=== PATIENT | female | born 1940 | race Caucasian/White ===

== ENCOUNTER 2024-08-20 14:26 | Emergency (ER) | payer MEDICARE, OTHER, SELFPAY ==
[2024-08-20 14:33] VITALS: BP 121/79
[2024-08-20 14:53] LABS: % Basophils 0.6 % (0-2); % Immature Granulocytes 0.4 % (0-0.5); % Lymphocytes 13.6 % (20.5-51.1); % Monocytes 8.8 % (1.7-9.3); % Neutrophils 75.6 % (42.2-75.2); Absolute Eosinophils 0.1 10^3/uL (0-0.7); Absolute Monocytes 0.6 10^3/uL (0.1-0.6); Absolute Neutrophils 5.3 10^3/uL (1.4-6.5); Hemoglobin 12.2 g/dL (12.0-16.0); Mean Corpuscular Volume 88.1 fL (81.0-99.0); Nucleated Red Blood Cells % 0 %; Platelet Count 251 10^3/uL (130-400); Red Cell Dist. Width 11.9 % (11.5-14.5)
[2024-08-20 15:35] LABS: ALT (SGPT) 14 U/L (0-35); AST (SGOT) 19 U/L (14-36); Albumin 3.8 g/dl (3.5-5.0); Alkaline Phosphatase 112 U/L (38-126); Blood Urea Nitrogen 12 mg/dl (7-17); Calcium 9.2 mg/dl (8.4-10.2); Carbon Dioxide 28 mmol/L (22-30); Chloride 99 mmol/L (98-107); Glucose 104 mg/dl (70-99); Lipase 82 U/L (23-300); Potassium 3.5 mmol/L (3.5-5.1); Sodium 135 mmol/L (135-145); Total Bilirubin 0.8 mg/dl (0.2-1.3); Total Protein 6.2 g/dl (6.3-8.2); eGFR > 60.00
--- NOTE | 2024-08-20 16:34 | ED.GENMED ---
History of Present Illness
General
Chief Complaint: Abdominal Pain
Source: patient
Exam Limitations: none
Time Seen by Provider: 08/20/24 16:23
Nursing documentation reviewed up to this point in time: agreed with
History of Present Illness
History of Present Illness:
Patient is an 83-year-old female presenting to the emergency department w/ 4 days of left lower abdominal pain. She reports intermittent twinges of pain in the left lower abdomen which have been gradually worsening. Patient had 1 episode of
vomiting this morning and has been having mild nausea. She also endorses 1 episode of diarrhea the other day. No blood in her stools. Patient denies any urinary symptoms, chest pain, shortness of breath or fever. Patient is concerned that she
has a bowel obstruction.
Patient denies any history of similar symptoms.
Patient is not on any blood thinners.
Review of Systems
Review of Systems
Allergies reviewed?: Yes
All Other Systems: ROS reviewed and negative except as documented in HPI and ROS
Phy Exam
Physical Exam
Physical Exam:
Vitals: Patient's vital signs are stable. Afebrile
General: Patient is well appearing, no acute distress
Skin: Warm and dry, no rashes or lesions
Head: Normocephalic, atraumatic
Eyes: Sclera nonicteric. EOMs intact. No nystagmus.
Throat: Protecting airway
Neck: Normal ROM, no cervical spine tenderness, no meningismus
Cardiac: Regular rate and rhythm. Systolic murmur
Pulm: Normal respiratory effort, no wheezes, rales, rhonchi heard on exam.
Abdomen: Abdomen soft. Mild tenderness in left lower quadrant without rebound tenderness or guarding. No CVA tenderness
Extremities: No evidence of cyanosis or edema. Palpable DP pulses bilaterally
Neuro: AAOx3. Grossly intact.
Psychiatric: Normal affect.
Course
Orders/Labs/Results
Orders:
Orders
08/20/24 14:44
Complete Blood Count/With Diff Urgent
Comprehensive Metabolic Panel Urgent
Lipase Urgent
08/20/24 16:58
CT Abd/pelvis W Iv Cont Urgent
Comment:
Reason For Exam: LLQ abdominal pain, +diarrhea
0.9% Sodium Chloride 500 ml [Nss] 500 ml IV BOLUS
08/20/24 18:26
Urinalysis Reflex To Culture Urgent
Date Specimen was Collected: 08/20/24
Time Specimen was Collected: 18:23
Urine Microscopic Reflex Cult Urgent
08/20/24 18:49
Electrocardiogram (*1) Urgent
Reason for Study: Abdominal Pain
EKG- Treatment ONCE
08/20/24 19:23
Amoxicillin/Clavulanate Potass [Augmentin 200 mg/5 ml] 875 mg PO NOW STA
Abnormal Lab Results
08/20/24 08/20/24
14:44 18:26
Absolute Lymphs (auto) 1.0 L 10^3/uL
(1.2-3.4)
Neutrophils % 75.6 H %
(42.2-75.2)
Lymphocytes % 13.6 L %
(20.5-51.1)
Glucose 104 H mg/dl
(70-99)
Total Protein 6.2 L g/dl
(6.3-8.2)
Urine Ketones 2+ A
(Negative)
Ur Occult Blood Reflex 1+ A
(Negative)
Urine Albumin (Reflex) 1+ A
(Neg - Trace)
08/20/24 14:44
08/20/24 14:44
Vital Signs
Initial and Last Documented VS:
Initial Vital Signs
Temp Pulse Resp BP Pulse Ox
98.9 F 89 18 121/79 96
08/20/24 14:33 08/20/24 14:33 08/20/24 14:33 08/20/24 14:33 08/20/24 14:33
Last Documented Vital Signs
Temp Pulse Resp BP Pulse Ox
98.9 F 78 18 145/90 93
08/20/24 14:33 08/20/24 20:39 08/20/24 20:39 08/20/24 20:39 08/20/24 20:39
MDM/Problems Addressed
Differential Diagnosis Includes:
Not limited to: Diverticulitis, colitis, epiploic appendagitis pyelonephritis, nephrolithiasis, etc.
MDM/Problems Addressed:
83-year-old female with 4 days of lower abdominal pain associated with nausea and 1 episode of vomiting. No fevers, chest pain, shortness of breath, urinary symptoms. Vitals and exam as above. Basic labs were initiated in triage without
clinically significant abnormalities. Plan for CT imaging of abdomen/pelvis and IV fluids. Patient declines analgesia at this time. Will obtain urinalysis, as well. Will closely monitor and reassess.
Update: CT report shows mild diverticulitis of the sigmoid colon without complication. Incidental findings of coronary artery calcifications and aortic valve calcifications, as well. No chest pain or shortness of breath to suggest ACS although did
obtain screening EKG without any acute ischemic changes. These findings were discussed with patient and patient was provided copy of CT report. Advise close follow-up with machine sander and return precautions. Regarding diverticulitis�feel patient
stable for treatment at home with oral antibiotics as she is afebrile with no leukocytosis and tolerating p.o. intake. Her pain has been well-controlled without analgesics in emergency department.
Patient reports that she is unable to take pills and requests liquid antibiotics. Patient has numerous antibiotic allergies. After lengthy discussion with patient�she states she has had no true reaction to Augmentin, just some diarrhea. Patient
prefers to take Augmentin rather than ciprofloxacin/Flagyl. Patient given first dose of Augmentin in emergency department which she tolerated well. Remainder of prescription sent to pharmacy. Return precautions discussed with patient, advise
clear liquid diet and advance to low fiber. Advised to stay well-hydrated and follow-up with primary care outpatient. Patient verbalized understanding. Case discussed with attending physician
Chronic conditions affecting care:
N/A
Acute Exacerbation and/or Progression of Chronic Illness:
Acute diverticulitis
*Radiology
Radiology exam reviewed: radiology read reviewed (Acute diverticulitis of sigmoid colon without complication)
*Pulse Oximetry
Patient hypoxic: no
*EKG
Interpreted by ED Provider?: Yes
Interpretation: abnormal
Comparison EKG: no comparison EKG present
Heart Rate: 80
Rate: normal
Rhythm: sinus
[place]: normal axis
Interval: normal QT interval
QRS Pattern: normal QRS
Ischemia: no ischemia
*Regulatory Affairs Portfolio Leader Interpretation
Rate: Regulatory Affairs Portfolio Leader- N/A
*Critical Care Note
Total Time (30-74mins, 75-104mins- exclusive of procedures): Not Applicable
ED Attending Note
-
Portions of this chart may have been created with voice recognition software.� Occasional wrong word or��sound alike� substitutions may have occurred due to the inherent limitations of voice recognition software.
Discharge Plan
Departure
Patient Disposition: Home (Routine Discharge)
Date of Disposition: 08/20/24
Time of Disposition: 19:31
Patient with high blood pressure during this ER visit?: Yes
Condition: Good
Covid-19: Not Applicable
Discharge Problem:
Acute diverticulitis
Instructions: Clear Liquid Diet, Diverticulitis (DC), Low-fiber diet, BLOOD PRESSURE
Prescriptions:
New
amoxicillin-pot clavulanate 600-42.9 mg/5 mL suspension for reconstitution
5 ml PO TID 10 Days Qty: 150 0RF
Referrals:
Ang Hardy MD [Family Provider] - Follow up in 5-7 days
Activity Restrictions/Additional Instructions:
Return to the emergency department with any worsening/persistent abdominal pain, intractable nausea/vomiting, fevers, chills, worsening in current symptoms, or any other concerns
-As discussed�your CT scan showed mild diverticulitis. A prescription for an antibiotic has been sent to your pharmacy. You should take this medication as listed on prescription label�5 mL 3 times daily for 10 days. It is important you complete
this course of antibiotics. You were given your first dose tonight in the emergency department.
-I would recommend a clear liquid diet over the next few days and then slowly advance to low fiber. You can take Tylenol and/or Motrin as needed for pain
-As discussed�there were also a few incidental findings noted on your CT scan. You should follow-up with the cardiology for further evaluation of coronary artery calcifications, possible aortic stenosis. This may require further imaging and
workup. Return with any chest pain or shortness of breath
-Follow-up with your primary care in a few days to ensure abdominal pain and symptoms of diverticulitis are improving.
Monitor your symptoms closely and return to the emergency department with any acute worsening/new symptoms or any other concerns
Interventions
Interventions:
*Risk Screen - Suicide Last Done: 08/20/24 14:33
*General Assessment Last Done: 08/20/24 14:33
*Neglect/Abuse Screening Last Done: 08/20/24 14:33
*ED- Fall Risk Assessment Last Done: 08/20/24 20:39
*ED COVID-19 Vaccine History Last Done: 08/20/24 20:39
*Nursing Disposition Last Done: 08/20/24 20:39
FO-Ijctgd-Kprwnbacet Assessment Last Done: 08/20/24 17:23
Discharge Date and Time
Discharge Date/Time: 08/20/24 20:40
Print Language: SINHALA
[2024-08-20 17:15] VITALS: BP 144/79
[2024-08-20] MEDS: NSS 500 IV (17:16)
[2024-08-20 18:42] LABS: Urine Albumin 1+ (Neg - Trace); Urine Bilirubin Negative (Negative); Urine Character Clear (Clear); Urine Color Yellow; Urine Glucose Negative (Negative); Urine Ketone 2+ (Negative); Urine Leukocyte Negative (Negative); Urine Nitrite Negative (Negative); Urine Occult Blood 1+ (Negative); Urine Urobilinogen Negative (Neg - 1+)
[2024-08-20 18:49] LABS: Urine Red Blood Cell 0-2 /HPF (0-2); Urine White Cell 0-2 /HPF (0-5)
[2024-08-20] MEDS: AUGMENTIN 200 MG/5 ML 875 MG PO (20:03)
[2024-08-20 20:39] VITALS: BP 145/90
== END 2024-08-20 20:40 | disposition home or self-care (01) ==
LOC: EMR 14:26
PROVIDERS: Emergency Medicine; Physician Assistant; EMERGENCY PHYSICIAN Emergency Medicine; FAMILY PHYSICIAN Family Medicine
DX: K57.32 Diverticulitis of large intestine without perforation or abscess without bleeding (principal); I70.0 Atherosclerosis of aorta; Z88.1 Allergy status to other antibiotic agents
CPT/HCPCS: 96360; 99284; 74177; 80053; 81003; 81015; 83690; 85025; 93005; Q9967

== ENCOUNTER 2024-08-26 12:11 | Emergency (ER) | payer MEDICARE, OTHER, SELFPAY ==
[2024-08-26 12:19] VITALS: BP 118/55
--- NOTE | 2024-08-26 12:51 | ED.GENMED ---
History of Present Illness
<Mercedes Cassidy PA-C - Last Filed: 08/26/24 20:57>
General
Chief Complaint: Abdominal Symptoms
Source: patient
Exam Limitations: none
Time Seen by Provider: 08/26/24 12:36
Nursing documentation reviewed up to this point in time: agreed with
History of Present Illness
History of Present Illness:
This is a 83-year-old female with past medical history of hypothyroidism, A-fib, presents emergency department today with concerns of left lower quadrant pain for little over the past week or so. Patient reports that she was seen in our emergency
department on 08/20/2024 and diagnosed with diverticulitis and she was started on Augmentin. Patient reports that her pain is gotten a lot worse. Patient states that she feels the pain diffusely in her abdomen but is worse left lower quadrant. She
has had no nausea or vomiting. She is try to stick to a bland diet but reports that she feels that she has a decreased appetite and is hard for her to eat food. Patient reports that she is also had diarrhea as well. She denies any chest pain or
shortness of breath. She denies any fevers or chills. She denies any syncopal episodes. She had past surgical history of of appendectomy and tubal ligation, as well as hernia repair but denies any other abdominal surgeries. She has been having
bowel movements and has been able to eat.
Patient declining medication for pain at this time.
Review of Systems
<Mercedes Cassidy PA-C - Last Filed: 08/26/24 20:57>
Review of Systems
All Other Systems: ROS reviewed and negative except as documented in HPI and ROS
Phy Exam
<Mercedes Cassidy PA-C - Last Filed: 08/26/24 20:57>
Physical Exam
Physical Exam:
General: Patient is well appearing and in no acute distress; non-toxic
Skin: Herpetic rash noted to left upper abdominal area
Head: Normocephalic, atraumatic
Eyes: Sclera non-icteric. EOMs intact.
Cardiac: Regular rate and rhythm, systolic murmur noted
Peripheral Vascular: No lower extremity swelling or edema
Pulm: Normal respiratory effort, no wheezes, rales, rhonchi
Abdomen: Diffuse abdominal tenderness palpation with guarding noted, worse in the left lower quadrant
Neuro: CN II-XII intact, no focal neurologic deficits.
Psychiatric: Appropriate mood and affect.
Course
<Mercedes Cassidy PA-C - Last Filed: 08/26/24 20:57>
Orders/Labs/Results
Orders:
Orders
08/26/24 12:50
CT Abd/pelvis W Iv Cont Urgent
Comment:
Reason For Exam: LLQ pain
08/26/24 13:01
Complete Blood Count/With Diff Urgent
Comprehensive Metabolic Panel Urgent
Lipase Urgent
08/26/24 15:10
Urinalysis Reflex To Culture Urgent
Date Specimen was Collected: 08/26/24
Time Specimen was Collected: 14:43
Abnormal Lab Results
08/26/24
13:01
RBC 4.02 L 10^6/uL
(4.20-5.40)
Hgb 11.7 L g/dL
(12.0-16.0)
Hct 34.7 L %
(37.0-47.0)
MPV 10.8 H fL
(7.4-10.4)
Absolute Lymphs (auto) 0.9 L 10^3/uL
(1.2-3.4)
Absolute Monos (auto) 0.7 H 10^3/uL
(0.1-0.6)
Lymphocytes % 13.9 L %
(20.5-51.1)
Monocytes % 10.3 H %
(1.7-9.3)
Potassium 3.2 L mmol/L
(3.5-5.1)
Carbon Dioxide 31 H mmol/L
(22-30)
Glucose 108 H mg/dl
(70-99)
Total Protein 5.8 L g/dl
(6.3-8.2)
08/26/24 13:01
08/26/24 13:01
Vital Signs
Initial and Last Documented VS:
Initial Vital Signs
Temp Pulse Pulse Ox
98.5 F 77 95
08/26/24 12:18 08/26/24 12:18 08/26/24 12:18
Last Documented Vital Signs
Temp Pulse Resp BP Pulse Ox
98.5 F 74 16 147/66 95
08/26/24 12:18 08/26/24 15:04 08/26/24 15:04 08/26/24 16:00 08/26/24 15:30
<Aly Muir MD - Last Filed: 08/26/24 16:36>
Orders/Labs/Results
Orders:
Orders
08/26/24 12:50
CT Abd/pelvis W Iv Cont Urgent
Comment:
Reason For Exam: LLQ pain
08/26/24 13:01
Complete Blood Count/With Diff Urgent
Comprehensive Metabolic Panel Urgent
Lipase Urgent
08/26/24 15:10
Urinalysis Reflex To Culture Urgent
Date Specimen was Collected: 08/26/24
Time Specimen was Collected: 14:43
Abnormal Lab Results
08/26/24
13:01
RBC 4.02 L 10^6/uL
(4.20-5.40)
Hgb 11.7 L g/dL
(12.0-16.0)
Hct 34.7 L %
(37.0-47.0)
MPV 10.8 H fL
(7.4-10.4)
Absolute Lymphs (auto) 0.9 L 10^3/uL
(1.2-3.4)
Absolute Monos (auto) 0.7 H 10^3/uL
(0.1-0.6)
Lymphocytes % 13.9 L %
(20.5-51.1)
Monocytes % 10.3 H %
(1.7-9.3)
Potassium 3.2 L mmol/L
(3.5-5.1)
Carbon Dioxide 31 H mmol/L
(22-30)
Glucose 108 H mg/dl
(70-99)
Total Protein 5.8 L g/dl
(6.3-8.2)
08/26/24 13:01
08/26/24 13:01
Vital Signs
Initial and Last Documented VS:
Initial Vital Signs
Temp Pulse Pulse Ox
98.5 F 77 95
08/26/24 12:18 08/26/24 12:18 08/26/24 12:18
Last Documented Vital Signs
Temp Pulse Resp BP Pulse Ox
98.5 F 74 16 147/66 95
08/26/24 12:18 08/26/24 15:04 08/26/24 15:04 08/26/24 16:00 08/26/24 15:30
[place];Mercedes Cassidy PA-C - Last Filed: 08/26/24 20:57>
MDM/Problems Addressed
Differential Diagnosis Includes:
Perforated diverticulitis, intra-abdominal abscess, colitis, shingles rash
MDM/Problems Addressed:
83-year-old female presents emergency department today with concerns of worsening left lower quadrant pain after starting treatment for diverticulitis. She states that she finished a course of antibiotics and her pain has gotten worse. Patient
denies any fevers or chills. Physical exam she is well-appearing in no acute distress but she does have tenderness to palpation in the left lower quadrant with guarding. Her CAT scan was negative for diverticulitis but did show extensive
diverticulosis. Pain could be related to superficial rash likely shingles in nature. Patient is had shingles before. Patient states that she is allergic to valacyclovir and acyclovir, but she does not believe that she had an anaphylactic
reaction. In light of patient significant symptoms, do not feel it is unreasonable to trial this medication as patient states that she has not had this medication 20 years. Patient states that she like to try this medication, however she cannot
take pills will send liquid. Patient stable for discharge.
Chronic conditions affecting care:
A-fib, hypothyroidism
<Mercedes Cassidy PA-C - Last Filed: 08/26/24 20:57>
*Pulse Oximetry
Patient hypoxic: no
*Critical Care Note
Total Time (30-74mins, 75-104mins- exclusive of procedures): Not Applicable
Data Reviewed
Review of Other/Old Records Reveals: Records (Reviewed ER physician documentation from 08/20/2024 patient seen for left lower quadrant pain diagnosed with mild diverticulitis)
Source: patient
ED Attending Note
<Mercedes Cassidy PA-C - Last Filed: 08/26/24 20:57>
-
Portions of this chart may have been created with voice recognition software.� Occasional wrong word or��sound alike� substitutions may have occurred due to the inherent limitations of voice recognition software.
<Aly Muir MD - Last Filed: 08/26/24 16:36>
ED Attending Note
Patient seen and examined by attending physician: Yes
I performed the substantive portion of visit, reviewed & personally made and approve the management plan that is documented in note by myself or ENRRIQUE.: Yes
ED Attending Note:
83-year-old female currently being treated for diverticulitis. On Augmentin. Presents with ongoing pain. Symptoms have not improved. No fever or chills. Very skin sensitive. On exam patient appears to have a zoster rash in the left lower
quadrant toward the left flank and a small area posterior back. All consistent with shingles. Abdomen is mildly tender in the left lower quadrant. No rebound or guarding no mass or hernia. Labs are stable. CT scan shows no signs of
diverticulitis.
In hindsight her symptoms are likely related more to the shingles then to diverticulitis. Reasonable to finish the course of Augmentin. Patient list significant allergies although is uncertain as to the allergic issue. We discussed the plus
minuses of antivirals. Her possible allergy issue did not sound life-threatening. She would do a trial of antivirals to follow-up
Discharge Plan
Departure
Patient Disposition: Home (Routine Discharge)
Date of Disposition: 08/26/24
Time of Disposition: 16:36
Patient with high blood pressure during this ER visit?: Yes
Condition: Good
Discharge Problem:
Shingles rash
Instructions: Shingles, BLOOD PRESSURE
Prescriptions:
New
acyclovir 200 mg/5 mL (5 mL) suspension
800 mg PO Q6H 10 Days Qty: 800 0RF
No Action
amoxicillin-pot clavulanate 600-42.9 mg/5 mL suspension for reconstitution
5 ml PO TID 10 Days Qty: 150 0RF
Referrals:
UNKNOWN - PT DOES,NOT KNOW [Family Provider] -
Activity Restrictions/Additional Instructions:
Please finish your course of Augmentin. Acyclovir liquid solution has been sent to your pharmacy. Please monitor for signs of allergic reaction.
Please follow-up with your primary care provider.
Your CT scan of the abdomen did not show any evidence of diverticulitis.
PLEASE RETURN EMERGENCY DEPARTMENT YOU DEVELOP FEVERS OR CHILLS, ACUTE WORSENING OF YOUR SYMPTOMS, CHEST PAIN, SHORTNESS OF BREATH, LIGHTHEADEDNESS, DIZZINESS, OR ANY OTHER SIGNS OR SYMPTOMS CONCERNING TO YOU.
Interventions
Interventions:
*Risk Screen - Suicide Last Done: 08/26/24 13:07
*General Assessment Last Done: 08/26/24 13:07
*Neglect/Abuse Screening Last Done: 08/26/24 13:07
*ED- Fall Risk Assessment Last Done: 08/26/24 13:07
*ED COVID-19 Vaccine History Last Done: 08/26/24 13:07
*Nursing Disposition Last Done: 08/26/24 16:51
EZ-Xzetfu-Hbtnumpoxr Assessment Last Done: 08/26/24 13:07
Discharge Date and Time
Discharge Date/Time: 08/26/24 16:52
Print Language: [place]EN[place]
[2024-08-26 13:03] VITALS: BP 112/60
[2024-08-26 13:22] LABS: % Basophils 0.5 % (0-2); % Eosinophils 1.5 % (0-6); % Immature Granulocytes 0.5 % (0-0.5); % Lymphocytes 13.9 % (20.5-51.1); % Monocytes 10.3 % (1.7-9.3); % Neutrophils 73.3 % (42.2-75.2); Absolute Eosinophils 0.1 10^3/uL (0-0.7); Absolute Lymphocytes 0.9 10^3/uL (1.2-3.4); Absolute Monocytes 0.7 10^3/uL (0.1-0.6); Absolute Neutrophils 4.9 10^3/uL (1.4-6.5); Hematocrit 34.7 % (37.0-47.0); Hemoglobin 11.7 g/dL (12.0-16.0); Mean Corp Hgb Conc. 33.7 g/dL (33.0-37.0); Mean Corpuscular Hgb 29.1 pg (27.0-31.0); Mean Corpuscular Volume 86.3 fL (81.0-99.0); Mean Platelet Volume 10.8 fL (7.4-10.4); Nucleated Red Blood Cells % 0 %; Platelet Count 225 10^3/uL (130-400); Red Blood Cell Count 4.02 10^6/uL (4.20-5.40); Red Cell Dist. Width 11.9 % (11.5-14.5); White Blood Cell Count 6.6 10^3/uL (4.8-10.8)
[2024-08-26 13:32] LABS: ALT (SGPT) 14 U/L (0-35); AST (SGOT) 20 U/L (14-36); Albumin 3.6 g/dl (3.5-5.0); Alkaline Phosphatase 123 U/L (38-126); Blood Urea Nitrogen 7 mg/dl (7-17); Calcium 8.9 mg/dl (8.4-10.2); Carbon Dioxide 31 mmol/L (22-30); Chloride 99 mmol/L (98-107); Glucose 108 mg/dl (70-99); Lipase 117 U/L (23-300); Potassium 3.2 mmol/L (3.5-5.1); Sodium 136 mmol/L (135-145); Total Bilirubin 0.9 mg/dl (0.2-1.3); Total Protein 5.8 g/dl (6.3-8.2); eGFR > 60.00
[2024-08-26 14:00] VITALS: BP 126/65
[2024-08-26 15:03] VITALS: BP 140/68
[2024-08-26 15:20] LABS: Urine Albumin Negative (Neg - Trace); Urine Bilirubin Negative (Negative); Urine Character Clear (Clear); Urine Color Yellow; Urine Glucose Negative (Negative); Urine Ketone Negative (Negative); Urine Leukocyte Negative (Negative); Urine Nitrite Negative (Negative); Urine Occult Blood Negative (Negative); Urine Specific Gravity 1.005 (<1.030); Urine Urobilinogen Negative (Neg - 1+); Urine pH 6.5 (5.0-9.0)
[2024-08-26 16:00] VITALS: BP 147/66
== END 2024-08-26 16:52 | disposition home or self-care (01) ==
LOC: EMR 12:11
PROVIDERS: Physician Assistant; EMERGENCY PHYSICIAN Emergency Medicine
DX: B02.9 Zoster without complications (principal); R03.0 Elevated blood-pressure reading, without diagnosis of hypertension; I48.91 Unspecified atrial fibrillation; K57.30 Diverticulosis of large intestine without perforation or abscess without bleeding; E03.9 Hypothyroidism, unspecified
CPT/HCPCS: 99285; 74177; 80053; 81003; 83690; 85025; Q9967